=== PATIENT | male | born 1975 ===

== ENCOUNTER 2020-09-17 15:32 | Outpatient (REF) | payer OTHER, SELFPAY ==
--- NOTE | ~2020-09-17 | MR_ITS ---
EXAMINATION: MR LUMBAR SPINE WITHOUT CONTRAST CLINICAL INFORMATION: Radiculopathy. COMPARISON: None. TECHNIQUE: MRI of the lumbar spine was obtained using routine sequences without contrast. FINDINGS: VERTEBRAL BODIES AND PARASPINAL STRUCTURES: Mild straightening of the normal lumbar lordosis is visualized. No vertebral body compression deformities are identified. Mild/moderate multilevel endplate discogenic marrow signal changes are noted with findings most pronounced adjacent to the L4-L5 intervertebral discs. 4 lumbar type vertebral bodies are noted with apparent mild bilateral sacralization of the presumed L5 vertebral body. Vertebral body levels are enumerated with reference to the inferior most rib bearing vertebral body, which is presumed to represent T12. On this basis, a rudimentary intervertebral disc is present at S1-S2. CONUS MEDULLARIS AND CAUDA EQUINA: Normal, terminating at the level of T12. SPINAL LEVELS: T12-L1: No significant central or foraminal stenoses. Mild bilateral ligamentum flavum hypertrophy. L1-L2: No central or foraminal stenoses. Moderate bilateral ligamentum flavum hypertrophy. L2-L3: No central or foraminal stenoses. Moderate bilateral ligamentum flavum hypertrophy. L3-L4: No central or foraminal stenoses. Moderate bilateral ligamentum flavum hypertrophy. L4-L5: Mild central stenosis. Moderate posterior broad-based disc bulge and probable annular fissure coming into close proximity with the traversing left and right L5 nerve roots. T2 hyperintensity is present in the central and left parasagittal annulus of the the protrusion. The protrusion comes to within 1 mm proximity of the traversing left and right L5 nerve roots. L5-S1: Moderate central and right parasagittal disc protrusion overlying a moderate posterior broad-based disc bulge, mildly abutting the right S1 nerve roots. The protrusion comes to within 1 mm proximity of the traversing right S1 nerve roots and within 2 mm proximity of the left traversing S1 nerve roots. Furthermore, mild bilateral foraminal stenoses are present secondary to the intraforaminal component of the broad-based disc bulge with mild abutment upon the exiting right L5 nerve roots. MR/MR lumbar spine wo con IMPRESSION: 1. Transitional vertebral body at the lumbosacral junction presumed to represent L5 with partial bilateral sacralization. 2. L4-L5 moderate posterior broad-based disc bulge and annular disc fissure coming into close proximity with the left and right L5 nerve roots without direct nerve root impingement. 3. L5-S1 posterior broad-based disc bulge and overlying right parasagittal disc protrusion resulting in mild right S1 and right L5 nerve root abutment.
== END 2020-09-17 15:33 | disposition home or self-care (01) ==
LOC: HO.MRI 15:32
PROVIDERS: Visit Provider Nurse Practitioner Family
DX: M54.16 Radiculopathy, lumbar region (principal)
CPT/HCPCS: 72148

== ENCOUNTER → 2020-11-06 10:23 | Outpatient (BNVA) | payer OTHER, SELFPAY | PROVIDERS: PCP Nurse Practitioner Family; Visit Provider Internal Medicine | DX: M51.26 Other intervertebral disc displacement, lumbar region (principal) | CPT/HCPCS: 99202 ==

== ENCOUNTER 2020-12-02 05:57 | Outpatient (REF) | payer OTHER, SELFPAY | END 2020-12-02 05:58 | disposition home or self-care (01) | LOC: HO.RADIR 05:57 | PROVIDERS: Visit Provider Internal Medicine | DX: M54.16 Radiculopathy, lumbar region (principal) | CPT/HCPCS: J1100; Q9967 ==

== ENCOUNTER 2021-04-20 10:29 | Outpatient (REF) | payer OTHER, SELFPAY ==
[2021-04-20 11:37] LABS: Alanine Aminotransferase 16 U/L (0-40); Albumin Level 4.4 g/dL (3.5-5.0); Alkaline Phosphatase 89 U/L (39-117); Anion Gap 11 (12-20); Aspartate Amino Transferase 17 U/L (5-37); Bilirubin Total 0.5 mg/dL (0.0-1.0); Blood Urea Nitrogen 13 mg/dL (9-16); Calcium 9.6 mg/dL (8.4-10.2); Carbon Dioxide 28 mmol/L (22-29); Chloride 105 mmol/L (96-108); Cholesterol 183 mg/dL; Estimated Glomerular Filt Rate > 60; Glucose Fasting 98 mg/dL (60-99); HDL Cholesterol 33 mg/dL; LDL Cholesterol Calculated 125 mg/dl; Potassium 4.5 mmol/L (3.3-5.1); Sodium 139 mmol/L (135-145); Total Protein 6.8 g/dL (6.5-8.0); Triglycerides 128 mg/dL
[2021-04-20 12:01] LABS: TSH reflex Free T4 1.56 uIU/mL (0.32-4.0)
[2021-04-20 13:56] LABS: Appearance Urine HAZY; Color Urine YELLOW; Glucose Urine UA NEG (NEG); Leukocyte Esterase Urine NEG (NEG); Nitrite Urine NEG (NEG); Specific Gravity - Urine 1.025 (1.005-1.025); UACC Culture Trigger NO; Urine Blood TRACE (NEG); Urine Ketones NEG (NEG); Urine Protein NEG (NEG-TRACE)
[2021-04-20 14:14] LABS: Mucus Urine 1+ /LPF; RBC Urine 0-2 /HPF (0); WBC Urine 0 /HPF (0-4)
== END 2021-04-20 10:30 | disposition home or self-care (01) ==
LOC: HO.HMGCLDS 10:29
PROVIDERS: PCP Nurse Practitioner Family; Visit Provider Nurse Practitioner Family
DX: Z00.00 Encounter for general adult medical examination without abnormal findings (principal); F11.20 Opioid dependence, uncomplicated; R11.14 Bilious vomiting
CPT/HCPCS: 36415; 80053; 80061; 81001; 81003; 84443

== ENCOUNTER 2021-11-01 10:43 | Emergency (ER) | payer OTHER, SELFPAY ==
--- NOTE | ~2021-11-01 | CT_ITS ---
EXAMINATION: CT ABDOMEN AND PELVIS WITHOUT CONTRAST CLINICAL INFORMATION: Diffuse severe abdominal pain COMPARISON: CT abdomen pelvis 05/09/2019 TECHNIQUE: Multidetector volumetric imaging was performed from the superior aspect of the liver through the pubic symphysis. Sagittal and coronal reformatted images were obtained on the technologist's workstation. This CT examination was performed using dose optimization techniques as appropriate, variously including the following: *Automated exposure control *Adjustment of mA and/or kV according to patient size (this includes techniques or standardized protocols for targeted exams where dose is matched to indication/reason for exam; i.e. extremities or head) *Use of iterative reconstruction technique DLP: 1017 mGy-cm FINDINGS: LUNG BASES: The visualized lung bases are unremarkable. LIVER, GALLBLADDER, AND BILIARY TREE: The liver is normal in size, shape, and attenuation. Tiny hepatic cysts are again seen which are unchanged. No focal hepatic lesion or biliary ductal dilatation is present. The gallbladder is unremarkable with no evidence of radiopaque gallstones, gallbladder wall thickening, or obvious pericholecystic inflammatory changes. PANCREAS: Unremarkable. SPLEEN: Unremarkable. ADRENAL GLANDS: Unremarkable. KIDNEYS AND URETERS: The kidneys are normal in size, shape, and attenuation. No hydronephrosis, hydroureter, or calculi seen. No perinephric stranding. BLADDER: Unremarkable. GASTROINTESTINAL TRACT: A small hiatal hernia is present The small and large bowel are unremarkable. The appendix is unremarkable. ABDOMINAL WALL: No significant hernia is appreciated. LYMPH NODES: Normal. VASCULAR: Unremarkable. PELVIC VISCERA: Prostate and seminal vesicles appear normal. OSSEOUS STRUCTURES: Minimal degenerative changes present at L4-L5 and L5-S1. No bony destructive lesions. CT/CT abdomen pelvis wo con IMPRESSION: No significant abnormality is seen and a cause for the patient's diffuse severe abdominal pain is not identified.. Fleischner guidelines were followed.
[2021-11-01 10:47] VITALS: BP 131/73; PULSE 50; RESP 18; TEMP 36.6; O2SAT 98; BMI 26.6
[2021-11-01 11:09] VITALS: BP 152/69; PULSE 56; RESP 18; TEMP 36.8; O2SAT 98
[2021-11-01 11:33] LABS: MANUAL DIFF FLAG NO
[2021-11-01 11:45] LABS: Basophils Absolute Auto 0.1 X10*3/uL (0.0-0.2); Basophils Percent Auto 0.8 % (0-2); Eosinophils Absolute Auto 0.2 X10*3/uL (0.0-0.4); Eosinophils Percent Auto 3.2 % (0-4); Imm Gran Abs Auto 0.03 X10*3/uL (0.00-0.03); Imm Gran Pct Auto 0.5 % (0.0-0.4); Lymphocytes Absolute Auto 1.1 X10*3/uL (1.2-4.9); Lymphocytes Percent Auto 17.2 % (20-40); Mean Corpuscular HGB Conc 33.3 g/dl (31.0-36.0); Mean Corpuscular Volume 90.1 fL (80.0-98.0); Mean Platelet Volume 10.1 fL (9.4-12.4); Monocytes Absolute Auto 0.5 X10*3/uL (0.1-1.2); Monocytes Percent Auto 8.2 % (2-11); Neutrophils Absolute Auto 4.6 x10*3/uL (2.0-8.3); Neutrophils Percent Auto 70.1 % (45-73); Platelet Count 194 X10*3/uL (160-400); Red Blood Count 4.66 X10*6/uL (4.60-5.80); Red Cell Distribution Width 13.1 % (11.0-16.0); White Blood Count 6.6 X10*3/uL (4.8-10.8)
[2021-11-01 11:59] LABS: Alanine Aminotransferase 25 U/L (0-40); Albumin Level 4.6 g/dL (3.5-5.0); Alkaline Phosphatase 82 U/L (39-117); Anion Gap 12 (12-20); Aspartate Amino Transferase 21 U/L (5-37); Bilirubin Total 0.6 mg/dL (0.0-1.0); Blood Urea Nitrogen 10 mg/dL (9-16); Calcium 9.3 mg/dL (8.4-10.2); Carbon Dioxide 28 mmol/L (22-29); Chloride 102 mmol/L (96-108); Estimated Glomerular Filt Rate > 60; Glucose Random 117 mg/dL (60-115); Potassium 4.7 mmol/L (3.3-5.1); Sodium 137 mmol/L (135-145); Total Protein 7.2 g/dL (6.5-8.0)
--- NOTE | 2021-11-01 18:21 | ED.NAVMDI ---
HPI - Nausea/Vomiting/Diarrhea General Chief complaint: Nausea/Vomiting/Diarrhea Stated complaint: vomiting , trouble sleeping Time Seen by Provider: 11/01/21 18:20 Source: patient Mode of arrival: ambulatory Limitations: other (Poor historian) History of Present Illness HPI Narrative: 45-year-old male presents to the emergency department with complaints of abdominal pain, nausea and vomiting times 2 months worsening over the past 2 days. 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 Patient tells me this feels like his typical back pain. No direct trauma to the area. He tells me the pain is localized to his lower back, does not radiate. He denies red flag symptoms such as numbness, tingling, urinary/bowel incontinence/retention, weakness, fevers, chills. Patient tells me that his abdominal pain is diffuse in nature, intermittent, happens randomly. He is unsure what makes it better or worse. He also reports daily nausea and vomiting over the past 2 months, worse in the morning. When I asked him how many times he vomits throughout the day he tells me 20. Patient appears to be a poor historian, he is drowsy, poorly answering my questions, giving me short answers, gave me and nursing different stories. At this time denies fevers, chills, chest pain, shortness of breath, numbness, tingling, saddle paresthesias. MD elicited complaint: nausea Onset (ago): month(s) (2) Description of vomiting: food contents and watery Associated nausea: Yes Associated abdominal pain: No Location of pain: none Severity: moderate Exacerbating factors: other (Morning ) Relieving factors: none Associated symptoms: denies other symptoms Related Data Previous Rx's Medication Instructions Recorded buspirone 15 mg tablet 15 mg PO BID 90 days #180 tabs 07/14/21 lidocaine 5 % topical patch 1 patch topical DAILY PRN pain #15 11/01/21 ea naproxen 500 mg tablet 500 mg PO BID PRN pain #14 tabs 11/01/21 Allergies Allergy/AdvReac Type Severity Reaction Status Date / Time No Known Allergies Allergy Verified 04/20/21 12:13 [No Known Allergies*] Review of Systems Review of Systems: Constitutional : No Weight loss, No Fever, No Chills, No Fatigue, No Malaise ENT/Mouth : No sore throat, No Rhinorrhea Eyes: No Eye Pain, No Swelling, No Redness Cardiovascular : No Chest Pain, No SOB, No Dyspnea on Exertion, No Orthopnea, No Edema, No Palpitations Respiratory : No Cough, No Sputum, No Wheezing Gastrointestinal : + Nausea, + Vomiting, No Diarrhea, No Constipation, + abdominal Pain, No Hematochezia, No Melena Genitourinary : No Dysuria, No Urinary Frequency, No Hematuria, Musculoskeletal : No joint pain, No Myalgias, No Joint Swelling Skin : No Skin Lesions, No rash Neuro : No Weakness, No Numbness, No Dizziness, No Headache Psych : No Anxiety/Panic, No Depression All other systems reviewed and are negative Yes all other systems are reviewed and are negative Gastrointestinal: Gastrointestinal: Reports nausea PMFSH Past Medical History Attestation statement: The following information was validated with the patient. Source: old records reviewed and nursing notes reviewed Surgical History H/O hand surgery Family History Family History Father Hypertension Mother Diabetes Other Mental health disorder Social History Social History Housing: Other (family skilled nursing) Alcohol intake: never Patient Tobacco Use Status: Never used Tobacco Second Hand Smoke Exposure: Yes Advance Directives: No Advance Directives Information Provided: No Current occupational status: unemployed Physical Exam Vital Signs: Vital Signs: Last Vital Signs Temp 98.3 F 11/01/21 11:09 Pulse 59 11/01/21 21:54 Resp 18 11/01/21 21:54 BP 129/74 11/01/21 21:54 Pulse Ox 98 11/01/21 21:54 O2 Del Method 11/01/21 21:54 BMI result Body Mass Index 26.6 VSS Appearance: Alert.? Oriented X3.? No acute distress.?Sleepy, short responses, appears drowsy. Head: Normocephalic, atraumatic, no step-offs or deformities Eyes: Pupils equal, round and reactive to light.? ENT: Pharynx normal.? Neck: Normal inspection.? Neck supple.? CVS: Normal heart rate and rhythm.? Pulses normal.? Respiratory: No respiratory distress.? Breath sounds normal.? Abdomen: Soft and +diffusely tender.? Skin: Skin warm and dry.? Normal skin color.? Normal skin turgor.? Extremities: No lower extremity edema.? No calf ttp. 5/5 strength to bilateral upper and lower extremities 2+ patellar reflexes equal bilateral. Back: No midline tenderness, no C-spine tenderness, full range of motion, no CVA tenderness bilaterally + bilateral lumbar paraspinous tenderness on palpation. No midline tenderness. Neuro: Oriented X 3.? No motor deficit.? No sensory deficit. CN 2-12 intact . No saddle paresthesias Course Course Course Narrative: This patient was evaluated during a time of global shortage of iodinated contrast media. Based on guidance from the [employer], best practices, and local institutional approaches an alternative path for evaluating and managing the patient may have been employed in order to provide optimal care during this shortage. The current situation has been discussed with the patient. Reevaluation(s) Reevaluation #1: CBC with no acute findings. Chemistry with no acute electrolyte abnormalities requiring intervention. Urine , lipase, abdominal CT and drug tox pending. Time: 19:01 Reevaluation #2: Lipase slightly elevated however not meeting criteria for pancreatitis. UA with no signs of acute infection. Urine toxicology positive for fentanyl and marijuana. CT of the abdomen and pelvis no significant abnormalities to justify patient's pain. Since patient has been here he has not vomited once. Patient admits to fentanyl use, does not want detox. Care team is not here therefore substance use disorder evaluation cannot be done. Patient is much more awake at this time, consistent with fentanyl use prior to arrival. Patient's back pain is likely lumbar strain or herniated disc do not suspect epidural abcess or cauda equina. No need for imaging as this was atraumatic. Advised patient that he will likely require an MRI for further evaluation of his back pain and he should see his PCP. Patient's abdomen is nontender to palpation at this time. He reports some nausea. Patient's abdominal pain, nausea and vomiting have been going on for months, no acute findings on today's visit therefore advised him to follow-up with gastroenterology. I will discharge patient home on Zofran, naproxen and lidocain patches. At this time I feel comfortable with discharge home. At time of discharge patient ambulating a steady gait, tells me feels slightly better, stable vitals. 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 Physical examination w/ diffusley tender abdomen, patient has bilateral paraspinous tenderness in the lumbar region, no midline tenderness, patient is drowsy, slow to respond to questions, he tells me he is just tired and has not slept.. History and physical examination not consistent with appendicitis, cholecystitis, pyelonephritis. Will rule out pancreatitis. Back pain likely lumbago, or herniated disc. No signs of cauda equina epidural abscess. Likely viral nausea and vomiting. Will obtain basic labs, urine, ct abd and pelvis. Medical Records Attestation: I reviewed the patient's medical records. Lab Data Attestation: I reviewed the patient's lab results. Result diagrams: 11/01/21 11:28 11/01/21 11:28 Labs: Lab Results 11/01/21 11/01/21 11/01/21 Range/Units 11:28 11:28 19:13 WBC 6.6 (4.8-10.8) X10*3/uL RBC 4.66 (4.60-5.80) X10*6/uL Hgb 14.0 (14.0-18.0) g/dl Hct 42.0 (42.0-52.0) % MCV 90.1 (80.0-98.0) fL MCH 30.0 (27.0-33.0) pg MCHC 33.3 (31.0-36.0) g/dl RDW 13.1 (11.0-16.0) % Plt Count 194 (160-400) X10*3/uL MPV 10.1 (9.4-12.4) fL Immature Gran % (Auto) 0.5 H (0.0-0.4) % Neut % (Auto) 70.1 (45-73) % Lymph % (Auto) 17.2 L (20-40) % Stephens % (Auto) 8.2 (2-11) % Eos % (Auto) 3.2 (0-4) % Baso % (Auto) 0.8 (0-2) % Lymph # (Auto) 1.1 L (1.2-4.9) X10*3/uL Stephens # (Auto) 0.5 (0.1-1.2) X10*3/uL Eos # (Auto) 0.2 (0.0-0.4) X10*3/uL Baso # (Auto) 0.1 (0.0-0.2) X10*3/uL Abs Immat Gran (auto) 0.03 (0.00-0.03) X10*3/uL Absolute Neuts (auto) 4.6 (2.0-8.3) x10*3/uL Absolute Nucleated RBC 0.000 (0.0-0.012) X10*3/uL Nucleated RBC % (auto) 0.0 (0.0-0.2) /100WBC Sodium 137 (135-145) mmol/L Potassium 4.7 (3.3-5.1) mmol/L Chloride 102 (96-108) mmol/L Carbon Dioxide 28 (22-29) mmol/L Anion Gap 12 (12-20) BUN 10 (9-16) mg/dL Creatinine 0.99 (0.5-1.4) mg/dL Estim Creat Clear Calc 93.0 Estimated GFR > 60 Random Glucose 117 H (60-115) mg/dL Calcium 9.3 (8.4-10.2) mg/dL Total Bilirubin 0.6 (0.0-1.0) mg/dL AST 21 (5-37) U/L ALT 25 (0-40) U/L Alkaline Phosphatase 82 (39-117) U/L Total Protein 7.2 (6.5-8.0) g/dL Albumin 4.6 (3.5-5.0) g/dL Lipase 82 H (8-78) U/L Urine Color Urine Appearance Urine pH (5.0-8.0) Ur Specific [place] (1.005-1.025) Urine Protein (NEG-TRACE) MG/DL Urine Glucose (UA) (NEG) MG/DL Urine Ketones (NEG) MG/DL Urine Blood (NEG) Urine Nitrite (NEG) Ur Leukocyte Esterase (NEG) Urine RBC (0) /HPF Urine WBC (0-4) /HPF Ur Squamous Epith Cells /LPF Amorphous Sediment /LPF Urine Bacteria /LPF Urine Mucus /LPF Urine Opiates Screen (Not Detect) Urine Fentanyl Screen (Not Detect) Ur Barbiturates Screen (Not Detect) Ur Phencyclidine Scrn (Not Detect) Ur Amphetamines Screen (Not Detect) U Benzodiazepines Scrn (Not Detect) Urine Cocaine Screen (Not Detect) U Marijuana (THC) Screen (Not Detect) 11/01/21 11/01/21 Range/Units 23:12 23:12 WBC (4.8-10.8) X10*3/uL RBC (4.60-5.80) X10*6/uL Hgb (14.0-18.0) g/dl Hct (42.0-52.0) % MCV (80.0-98.0) fL MCH (27.0-33.0) pg MCHC (31.0-36.0) g/dl RDW (11.0-16.0) % Plt Count (160-400) X10*3/uL MPV (9.4-12.4) fL Immature Gran % (Auto) (0.0-0.4) % Neut % (Auto) (45-73) % Lymph % (Auto) (20-40) % Stephens % (Auto) (2-11) % Eos % (Auto) (0-4) % Baso % (Auto) (0-2) % Lymph # (Auto) (1.2-4.9) X10*3/uL Stephens # (Auto) (0.1-1.2) X10*3/uL Eos # (Auto) (0.0-0.4) X10*3/uL Baso # (Auto) (0.0-0.2) X10*3/uL Abs Immat Gran (auto) (0.00-0.03) X10*3/uL Absolute Neuts (auto) (2.0-8.3) x10*3/uL Absolute Nucleated RBC (0.0-0.012) X10*3/uL Nucleated RBC % (auto) (0.0-0.2) /100WBC Sodium (135-145) mmol/L Potassium (3.3-5.1) mmol/L Chloride (96-108) mmol/L Carbon Dioxide (22-29) mmol/L Anion Gap (12-20) BUN (9-16) mg/dL Creatinine (0.5-1.4) mg/dL Estim Creat Clear Calc Estimated GFR Random Glucose (60-115) mg/dL Calcium (8.4-10.2) mg/dL Total Bilirubin (0.0-1.0) mg/dL AST (5-37) U/L ALT (0-40) U/L Alkaline Phosphatase (39-117) U/L Total Protein (6.5-8.0) g/dL Albumin (3.5-5.0) g/dL Lipase (8-78) U/L Urine Color YELLOW Urine Appearance HAZY Urine pH 7.5 (5.0-8.0) Ur Specific [place] 1.015 (1.005-1.025) Urine Protein 1+ H (NEG-TRACE) MG/DL Urine Glucose (UA) NEG (NEG) MG/DL Urine Ketones 40 (NEG) MG/DL Urine Blood 1+ H (NEG) Urine Nitrite NEG (NEG) Ur Leukocyte Esterase NEG (NEG) Urine RBC 1-4 (0) /HPF Urine WBC 0-2 (0-4) /HPF Ur Squamous Epith Cells TRACE /LPF Amorphous Sediment 2+ /LPF Urine Bacteria NONE /LPF Urine Mucus 1+ /LPF Urine Opiates Screen Not Detected (Not Detect) Urine Fentanyl Screen POSITIVE H (Not Detect) Ur Barbiturates Screen Not Detected (Not Detect) Ur Phencyclidine Scrn Not Detected (Not Detect) Ur Amphetamines Screen Not Detected (Not Detect) U Benzodiazepines Scrn Not Detected (Not Detect) Urine Cocaine Screen Not Detected (Not Detect) U Marijuana (THC) Screen POSITIVE H (Not Detect) Critical Care Time Critical Care Time Critical Care Time: No Discharge Plan Discharge Clinical Impression: Nausea & vomiting, Difficulty sleeping, Back pain, Fentanyl use disorder, moderate, Abdominal pain Patient Disposition: Home, Self-Care Instructions: Acute Nausea and Vomiting (ED), Acute Abdominal Pain (ED), Back Pain (ED) Additional Instructions: Take your medications as prescribed. If you were prescribed antibiotics today, it is important that you take your medication to their entirety, do not skip any doses, do not finish them early. Follow-up with your primary care provider this week. Your abdominal pain, nausea, vomiting has been going on for months therefore you should follow-up with gastroenterology information below. Return to the emergency department with new or worsening symptoms. Such as fevers, chills, chest pain, shortness of breath, nausea, vomiting, dizziness, headache, vision changes, lethargy, bloody stools, vomiting blood, weakness. In case of emergency call 911 For your back you will likely require an MRI if pain continues as this is the best mechanism to look at back injuries/issues with backs. Please follow up with your PCP Brunilda as medication as been sent to your pharmacy for nausea/vomiting, only take this as prescribed, taking more than the prescribed dose can lead to adverse effects that will affect the heart. Please be advised that you were seen during a time of global shortage of iodinated contrast media. This means an alternative approach to your diagnosis and treatment may have been employed in order to provide optimal care during the shortage. If you have any worsening symptoms, please go to the nearest emergency department or call 911 immediately Prescriptions: New lidocaine 5 % adhesive patch,medicated 1 patch topical DAILY PRN (Reason: pain) Qty: 15 0RF Rx Instructions: leave on most painful area for up to 12 hrs naproxen 500 mg tablet 500 mg PO BID PRN (Reason: pain) Qty: 14 0RF Rx Instructions: Take with food No Action buspirone 15 mg tablet 15 mg PO BID 90 Days Qty: 180 0RF Referrals: Sadi Sainz [Physician] - 1 week Nestor Elkins FNP- [Primary Care Provider] - 2 days
[2021-11-01 19:06] VITALS: BP 143/81; PULSE 64; RESP 20; O2SAT 97
[2021-11-01 19:39] LABS: Lipase 82 U/L (8-78)
[2021-11-01 21:24] VITALS: RESP 16
[2021-11-01 21:54] VITALS: BP 129/74; PULSE 59; RESP 18; O2SAT 98
[2021-11-01] MEDS: ondansetron HCL 4 MG/2 ML VIAL IVPUSH (21:56)
[2021-11-01] MEDS: 0.9 % Sodium Chloride 1,000 ML 999 ML IV (21:57)
[2021-11-01 23:19] LABS: Appearance Urine HAZY; Color Urine YELLOW; Glucose Urine UA NEG (NEG); Leukocyte Esterase Urine NEG (NEG); Nitrite Urine NEG (NEG); PH 7.5 (5.0-8.0); Specific Gravity - Urine 1.015 (1.005-1.025); UACC Culture Trigger NO; Urine Blood 1+ (NEG); Urine Ketones 40 MG/DL (NEG); Urine Protein 1+ MG/DL (NEG-TRACE)
[2021-11-01 23:24] LABS: Amorphous Sediment Urine 2+ /LPF; Mucus Urine 1+ /LPF; Squamous Epithelial Cell Urine TRACE /LPF; WBC Urine 0-2 /HPF (0-4)
[2021-11-01 23:35] LABS: Amphetamine Screen Urine Not Detected (Not Detect); Barbiturates, Urine Not Detected (Not Detect); Benzodiazepines Screen Urine Not Detected (Not Detect); Cannabinoid Screen Urine POSITIVE (Not Detect); Cocaine Screen Urine Not Detected (Not Detect); Fentanyl, urine POSITIVE (Not Detect); Opiate Screen Urine Not Detected (Not Detect); Phencyclidine Screen Urine Not Detected (Not Detect)
[2021-11-02] VITALS: BP 123/64; PULSE 65; RESP 20; TEMP 36.6; O2SAT 98
[2021-11-02] MEDS: Metoclopramide HCl 10 MG/2 ML VIAL IVPUSH (00:15)
[2021-11-02] MEDS: diphenhydrAMINE HCL 50 MG/ML VIAL IVPUSH (00:15)
[2021-11-02 02:00] VITALS: BP 137/67; PULSE 56; RESP 18; O2SAT 98
[2021-11-02 02:56] VITALS: BP 150/67; PULSE 68; RESP 18; TEMP 37; O2SAT 98
[2021-11-02] MEDS: Ondansetron ODT 4 MG TAB.RAPDIS TRANSLINGU (02:59)
== END 2021-11-02 03:05 | disposition home or self-care (01) ==
PROVIDERS: Physician Assistant; Emergency Provider Internal Medicine; PCP Nurse Practitioner Family
DX: R11.2 Nausea with vomiting, unspecified (principal); G47.9 Sleep disorder, unspecified; M54.9 Dorsalgia, unspecified; F11.20 Opioid dependence, uncomplicated; R10.9 Unspecified abdominal pain
CPT/HCPCS: 36415; 74176; 80053; 80307; 81001; 83690; 85025; 96361; 96374; 96375; 99284; J1200; J2405; J2765

== ENCOUNTER 2024-01-09 12:53 | Outpatient (AMB) | payer OTHER, SELFPAY ==
[2024-01-09 13:02] VITALS: BP 130/72; PULSE 60; O2SAT 97; BMI 25.4
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
== END 2024-01-09 15:11 | disposition home or self-care (01) ==
PROVIDERS: PCP Nurse Practitioner Family; Visit Provider Nurse Practitioner Family
DX: M25.511 Pain in right shoulder (principal); M25.512 Pain in left shoulder; F41.9 Anxiety disorder, unspecified; F32.A Depression, unspecified; M54.50 Low back pain, unspecified; Z12.11 Encounter for screening for malignant neoplasm of colon
CPT/HCPCS: 99213

== ENCOUNTER 2024-01-09 14:12 | Outpatient (REF) | payer OTHER, SELFPAY ==
--- NOTE | ~2024-01-09 | XR_ITS ---
EXAMINATION: XR LUMBOSACRAL SPINE CLINICAL INFORMATION: Lower back pain. COMPARISON: Portions of the MRI lumbar spine dated 09/17/2020. TECHNIQUE: AP and lateral views of the lumbar spine and lateral view of the lumbosacral junction. FINDINGS: There is bony demineralization. There is a slight thoracolumbar dextroscoliosis. At L4-5, there is moderate disc space narrowing, with endplate arthropathy. At L5-S1, there is a 4 mm retrolisthesis. The remaining disc spaces are relatively well-maintained. No acute fracture or spondylolisthesis is seen. There is multi-level mild lumbar endplate arthropathy. The posterior elements are intact. There is facet arthropathy L4-5 and L5-S1. The paravertebral soft tissues are unremarkable. XR/XR lumbar spine 2-3V IMPRESSION: 1. There is moderate degenerative disc disease at L4-5, and mild degenerative disease is seen at L5-S1. 2. There is facet arthropathy L4-5 and L5-S1. 3. There is a slight thoracolumbar levoscoliosis. Electronically signed by: Nestor Herron MD 02/01/2024 10:58 PM EDT
--- NOTE | ~2024-01-09 | XR_ITS ---
EXAMINATION: XR SHOULDER, LEFT CLINICAL INFORMATION: Pain history COMPARISON: None available. TECHNIQUE: AP external rotation, Grashey, scapular Y, and axillary views of the left shoulder. FINDINGS: Bony alignment and mineralization are normal. The glenohumeral joint is intact and shows mild peripheral osteophyte formation. The acromioclavicular and coracoclavicular angles are normal. No fracture or dislocation is seen. There is cortical irregularity of the greater tuberosity of the proximal left humerus. No focal soft tissue calcification or foreign body is seen. There is no left pneumothorax. XR/XR shoulder LT min 2V IMPRESSION: 1. There is mild osteoarthritic change of left glenohumeral joint. 2. Findings suggest left rotator cuff impingement, without brian calcific tendinitis noted. Electronically signed by: Nestor Herron MD 02/01/2024 02:54 PM EDT
--- NOTE | ~2024-01-09 | XR_ITS ---
EXAMINATION: XR SHOULDER, RIGHT CLINICAL INFORMATION: Pain. COMPARISON: Radiographs dated 01/09/2024. TECHNIQUE: AP external rotation, Grashey, scapular Y, and axillary views of the right shoulder. FINDINGS: Bony alignment and mineralization are normal. The glenohumeral joint is intact. There is mild osteoarthritic change of the glenohumeral joint. The acromioclavicular and coracoclavicular intervals are normal. A distal acromial undersurface osteophyte is seen. There is no focal soft tissue calcification or foreign body. No right pneumothorax is seen. XR/XR shoulder RT min 2V IMPRESSION: 1. There is mild osteoarthritic change the right glenohumeral joint. 2. Findings suggest possible right rotator cuff impingement, without focal calcific tendinitis seen. Electronically signed by: Nestor Herron MD 02/01/2024 10:47 PM EDT
== END 2024-01-09 14:13 | disposition home or self-care (01) ==
LOC: HO.HMGCX 14:12
PROVIDERS: PCP Nurse Practitioner Family; Visit Provider Nurse Practitioner Family
DX: M25.511 Pain in right shoulder (principal); M25.512 Pain in left shoulder; M54.50 Low back pain, unspecified
CPT/HCPCS: 72100; 73030

== ENCOUNTER 2024-02-15 11:22 | Outpatient (REF) | payer OTHER, SELFPAY ==
[2024-02-15 13:07] LABS: MANUAL DIFF FLAG NO
[2024-02-15 13:14] LABS: Appearance Urine Turbid; Color Urine Yellow; Glucose Urine UA Negative (Negative); Leukocyte Esterase Urine Negative (Negative); Nitrite Urine Negative (Negative); PH 7.5 (5.0-9.0); Specific Gravity - Urine 1.025 (1.005-1.025); Urine Blood Negative (Negative); Urine Ketones Negative (Negative); Urine Protein Negative (Neg-Trace)
[2024-02-15 13:18] LABS: Basophils Absolute Auto 0.1 X10*3/uL (0.0-0.2); Basophils Percent Auto 1.2 % (0-2); Eosinophils Absolute Auto 0.3 X10*3/uL (0.0-0.4); Eosinophils Percent Auto 6.2 % (0-4); Hematocrit 39.4 % (42.0-52.0); Hemoglobin 13.2 g/dl (14.0-18.0); Imm Gran Abs Auto 0.03 X10*3/uL (0.00-0.03); Imm Gran Pct Auto 0.6 % (0.0-0.4); Lymphocytes Absolute Auto 1.2 X10*3/uL (1.2-4.9); Lymphocytes Percent Auto 22.6 % (20-40); Mean Corpuscular HGB Conc 33.5 g/dl (31.0-36.0); Mean Corpuscular Hemoglobin 30.4 pg (27.0-33.0); Mean Corpuscular Volume 90.8 fL (80.0-98.0); Monocytes Absolute Auto 0.5 X10*3/uL (0.1-1.2); Monocytes Percent Auto 9.9 % (2-11); Neutrophils Absolute Auto 3.1 x10*3/uL (2.0-8.3); Neutrophils Percent Auto 59.5 % (45-73); Platelet Count 204 X10*3/uL (160-400); Red Blood Count 4.34 X10*6/uL (4.60-5.80); Red Cell Distribution Width 13.7 % (11.0-16.0); White Blood Count 5.1 X10*3/uL (4.8-10.8)
[2024-02-15 13:49] LABS: Alanine Aminotransferase 18 U/L (0-40); Albumin Level 4.3 g/dL (3.5-5.0); Alkaline Phosphatase 81 U/L (39-117); Anion Gap 10 (12-20); Aspartate Amino Transferase 41 U/L (5-37); Bilirubin Total 0.7 mg/dL (0.0-1.0); Blood Urea Nitrogen 11 mg/dL (9-16); Calcium 9.6 mg/dL (8.4-10.2); Carbon Dioxide 29 mmol/L (22-29); Chloride 104 mmol/L (96-108); Cholesterol 226 mg/dL (<200); Estimated Glomerular Filt Rate > 60; Glucose Fasting 100 mg/dL (60-99); HDL Cholesterol 45 mg/dL (>40); LDL Cholesterol Calculated 165 mg/dL (<100); Potassium 4.5 mmol/L (3.3-5.1); Sodium 138 mmol/L (135-145); Triglycerides 83 mg/dL (<150)
[2024-02-15 14:05] LABS: TSH reflex Free T4 0.92 uIU/mL (0.32-4.0)
== END 2024-02-15 11:23 | disposition home or self-care (01) ==
LOC: HO.HMGCLDS 11:22
PROVIDERS: PCP Nurse Practitioner Family; Visit Provider Nurse Practitioner Family
DX: F41.9 Anxiety disorder, unspecified (principal); F32.A Depression, unspecified
CPT/HCPCS: 36415; 80053; 80061; 81003; 84443; 85025

== ENCOUNTER 2025-04-09 12:52 | Outpatient (AMB) | payer OTHER, SELFPAY ==
[2025-04-09 12:56] VITALS: BP 96/60; PULSE 65; RESP 16; TEMP 37; O2SAT 96; BMI 23.6
--- NOTE | 2025-04-09 12:56 | MHC.PC.OV ---
Vital Signs 04/09/25 12:56 Height 5 ft 8 in Weight 155 lb BMI 23.6 BP 96/60 Blood Pressure Location Rt brachial Position Sitting Respiration 16 Pulse 65 Pulse Source Pulse Oximeter Temp 98.6 F Temp Source Oral Pulse Oximetry (%) 96 Oxygen Delivery Method Room Air Intake Visit Reasons: abdominal pain Intake Note: Pt is here today for a sick visit. Pt c/o L lower back/hip pain that goes down his leg for 2 weeks now. Allergies No Known Allergies (No Known Allergies*) Allergy (Verified 04/09/25 13:00) Tobacco use date assessed: 04/09/25 Dental Screening Dental Screen Date: 04/09/25 Did you have a dental visit in the last 12 months?: Yes Did you have a dental problem in the last 6 months where you did not have access to dental care?: No Was dental information given to patient?: Patient has dentist HPI abdominal pain HPI Details Chief Complaint The patient presents for a follow-up visit for ongoing chronic lower back pain. History of Present Illness The patient is a 49-year-old male presenting for a follow-up visit for ongoing chronic lower back pain with radicular symptoms down the left lower extremity. He denies any symptoms of cauda equina. A lumbar MRI from 2020 showed extensive disc protrusions with nerve root involvement, for which he was referred to neurosurgery in 2020. The patient is currently on methadone. Social History - Substance use: The patient is currently on methadone. Health Maintenance Review of Systems - Musculoskeletal: Reports chronic lower back pain. - Neurological: Reports radicular symptoms down the left lower extremity. - Neurological: Denies symptoms of cauda equina. Physical Exam General: Cooperative, healthy appearing, comfortable, no acute distress and well developed Orientation: Patient oriented x3 Limitations: No limitations Head: Normal to inspection Ears: Hearing grossly normal bilaterally Nose: Normal external nose present Face and sinus: Normal facial exam Eyes: Appearance normal, both eyes and all related structures Neck: Normal visual inspection and Yes full ROM Respiratory: Slightly coarse bilaterally, able to speak in complete sentences Cardiovascular: Regular rate and rhythm. Normal S1 and S2 GI: Normal to inspection. Soft to palpation and nontender Skin: No rashes or lesions noted Neuro: Patient oriented x3 Extremities: Positive straight leg raise noted to the left. Positive patellar reflex +1. Positive dorsalis pedis. Able to heel and toe walk with some exacerbation of symptoms down the left lower extremity. Results - Lumbar MRI (2020): Showed extensive disc protrusions with nerve root involvement. Plan 1. Chronic Low Back Pain With Left Sciatica The patient presents for a follow-up of chronic low back pain with radicular symptoms down the left lower extremity. He denies signs or symptoms of cauda equina syndrome. Physical exam reveals a positive straight leg raise on the left. Given his history of extensive disc protrusions with nerve root involvement on a 2020 MRI, the current presentation is suspected to be a continuation of the same pathology. An updated lumbar MRI will be ordered to re-evaluate his condition. A dexamethasone taper will be sent to his pharmacy for symptomatic relief. Discussion Notes I discussed with the patient that his current symptoms of lower back pain radiating down his left leg are likely related to his previously diagnosed disc protrusions from 2020. To better understand the current state, an updated lumbar MRI will be ordered. We confirmed that he is not experiencing any signs or symptoms of cauda equina syndrome. For symptomatic relief, I am prescribing a dexamethasone taper. Patient Instructions - You will be given a prescription for a dexamethasone taper to help with your symptoms. - An order for a new MRI of your lower back has been placed to get an updated look at your spine. - Please notify us or seek immediate medical attention if you develop new or worsening weakness in your legs, or any changes in your bowel or bladder control. [facility] Medical History Disc degeneration, lumbar Facet arthritis of lumbar region Bilious vomiting with nausea Surgical History H/O hand surgery Family History Father Hypertension Mother Diabetes Other Mental health disorder Social History Housing: Other (family residential) Alcohol intake: never Patient Tobacco Use Status: Never used Tobacco e-Cigarette/Vaping Use: Never Used Second Hand Smoke Exposure: Yes service: No Current occupational status: unemployed Cognitive needs: No Hearing needs: No Vision needs: No Questionnaire PHQ-9 Over the last 2 weeks, how often have you been bothered by any of the following problems? 1. Little interest or pleasure in doing things: several days 2. Feeling down, depressed, or hopeless: several days 3. Trouble falling or staying asleep, or sleeping too much: more than half the days 4. Feeling tired or having little energy: more than half the days 5. Poor appetite or overeating: several days 6. Feeling bad about yourself - or that you are a failure or have let yourself or your family down: several days 7. Trouble concentrating on things, such as reading the newspaper or watching television: several days 8. Moving or speaking so slowly that other people could have noticed. Or the opposite - being so fidgety or restless that you have been moving around a lot more than usual: several days 9. Thoughts that you would be better off or of hurting yourself in some way: not at all Total score: 10 Depression Screening Interpretation: Positive Depression Screening Done: Yes 66975 - PHQ-9 Billing: Yes Source: Developed by Drs. Venu Medellin, Padmini Dacosta, Chico Taylor and colleagues, with an educational cezar from [employer]. Thrive Questionnaire Date Thrive assessed: 04/09/25 I am a: Patient What is your living situation today?: I do not have a steady places to live I am living in a car Within the past 12 months, did the food you bought not last and you didn't have the money to get more?: Often true Within the past 12 months, did you worry whether your food would run out before you got money to buy more?: Often true Do you have trouble paying for medicines?: No Do you have trouble getting transportation to medical appointments?: Yes Do you have trouble paying your heating and electricity bill?: Yes Do you have trouble taking care of your child, family member or friend?: Yes Do you have trouble with day-to-day activities such as bathing, preparing meals, shopping, managing finances, etc.?: Yes Are you currently unemployed and looking for a job?: No Are you interested in more education?: Yes Please select the resources that you would like help with: Housing/Senior Care Currently or been in a relationship where the following occur: I choose not to answer THRIVE Score: 5 AUDIT C Alcohol Use Questionnaire (AUDIT-C) 1. How often do you have a drink containing alcohol?: Never Total Score: 0 LAUREN-7 AMB Questionnaire LAUREN-7 Date LAUREN - 7 assessed: 04/09/25 Feeling nervous, anxious, or on edge: 1 = Several days Not being able to stop or control worryin = Several days Worrying too much about different things: 2 = More than half the days Trouble relaxin = Several days Being so restless that it is hard to sit still: 2 = More than half the days Becoming easily annoyed or irritable: 1 = Several days Feeling afraid as if something awful might happen: 1 = Several days Total LAUREN-7 score (0-4 normal; 5-9 mild; 10-14 moderate; 15-21 severe): 9 Source: Developed by Drs. Venu Medellin, Padmini Dacosta, Chico Taylor and colleagues, with an educational cezar from [employer]. LAUREN-7 Assessment Billing LAUREN-7 Assessment Tool: LAUREN-7 Assessment 22267 Physical exam (Primary Care) Vital Signs: Last Vital Signs Temp 98.6 F 04/09/25 12:56 Pulse 65 04/09/25 12:56 Resp 16 04/09/25 12:56 BP 96/60 04/09/25 12:56 Pulse Ox 96 04/09/25 12:56 Oxygen Delivery Method Room Air 04/09/25 12:56 BMI result Body Mass Index 23.6 Tobacco/Smoking Status: Tobacco use Status Tobacco use date assessed 04/09/25 04/09/25 13:02 Patient Tobacco Use Status Never used Tobacco 04/09/25 12:56 e-Cigarette/Vaping Use Never Used 04/09/25 12:56 PHQ-9: PHQ-9 Score PHQ-9: Total score 10 04/09/25 13:02 Depression Screening Interpretation: Positive Thrive Assessment: Date of Thrive Assessment Date Thrive assessed 04/09/25 04/09/25 13:02 Currently or been in a relationship where the following occur: I choose not to answer Coding Level of Care Code Est Pt Level 3 (75280) Diagnoses Lumbar back pain with radiculopathy affecting left lower extremity M54.16 Additional Codes LAUREN-7 Assessment Billing - LAUREN-7 Assessment Tool: LAUREN-7 Assessment 13813 ([id number]) PHQ-9 - 79922 - PHQ-9 Billing: Yes ([id number]) Assessment & Plan Assessment & Plan (1) Lumbar back pain with radiculopathy affecting left lower extremity: Code(s): M54.16 - Radiculopathy, lumbar region Category: Medical Plan . Orders: Orders MR lumbar spine wo con Today M54.16 - Radiculopathy, lumbar region Medications: New dexamethasone 1 tab 3 times a day for 3 days, 1 tab bid for 3 days, 1 tab daily for 3 days 4 mg PO DAILY 18 tabs 0RF 9 days
== END 2025-04-09 13:54 | disposition home or self-care (01) ==
LOC: HO.HMCC 12:53
PROVIDERS: PCP Nurse Practitioner Family; Visit Provider Nurse Practitioner Family
DX: M54.16 Radiculopathy, lumbar region (principal)

== ENCOUNTER → 2025-04-09 12:52 | Outpatient (BNVA) | payer OTHER, SELFPAY | PROVIDERS: PCP Nurse Practitioner Family; Visit Provider Nurse Practitioner Family | DX: M54.16 Radiculopathy, lumbar region (principal) | CPT/HCPCS: 96127; 99212 ==